=== PATIENT | male | born 1975 | race Caucasian/White ===

== ENCOUNTER 2023-08-07 16:31 | Emergency (ER) | payer MEDICAID, SELFPAY ==
[2023-08-07 16:34] VITALS: BP 132/98; PULSE 123; RESP 14; O2SAT 98
--- NOTE | 2023-08-07 17:08 | W.ED.GENAD ---
Discharge Plan Discharge Details Chief Complaint: AMS/LOC Primary Care Provider: None,None ED Provider: Orion Deleon Home Meds and New Rx's Prescriptions: No Action No Known Home Meds HPI General Date/Time Provider Initiated Documentation: 08/07/23 16:53. HPI Narrative: 47-year-old male brought in by partner for evaluation of change in mental status over the past couple of weeks, went on a weekend metz 07/23 to 07/25; has had strange fixations and obsessional thoughts centered around magnets, also has had some paranoid thoughts, it is gone to the point where patient felt uncomfortable having his rifle in the home and asked the police to confiscated which they did, patient has no thoughts of harming anyone else however he does have some thoughts of self-harm. Denies tata hallucinations. Denies history of psychiatric illness. Related Data Home Medications Medication Instructions Recorded Confirmed Unknown [No Known Home Meds] 08/07/23 08/07/23 Allergies Allergy/AdvReac Type Severity Reaction Status Date / Time No Known Allergies Allergy Verified 08/07/23 16:40 General Stated Complaint: AMS/LOC MIGUEL: 3 Review of Systems Narrative: Review of Systems Constitutional: negative Eyes: negative ENT: negative Cardiovascular: negative Respiratory: negative Gastrointestinal: negative : negative Musculoskeletal: negative Skin: negative Neurologic: negative Psych: Obsessional thoughts, paranoia Exam Narrative Exam Narrative: Physical Examination General: alert, awake, cooperative, resting comfortably, no acute distress HEENT: normocephalic, atraumatic; PERRL, EOM intact, conjunctiva normal; no nasal discharge; moist mucous membranes, oral and pharyngeal mucosa normal, tolerating secretions Neck: supple, trachea midline; full ROM Chest: normal to inspection Respiratory: normal respiratory effort, speaking in full sentences, clear to auscultation, no wheezing, rales or rhonchi Cardiac: regular rate, regular rhythm, S1S2 intact, no murmurs rubs or gallops GI: abdomen soft, non-tender, non-distended; no palpable mass or hepatosplenomegaly Skin: no lesions, rashes or trauma appreciated; consider slight jaundice Neuro: AAOx3, normal speech, moving all extremities Extremities: No trauma no edema Psych: Calm cooperative interactive appropriate, appears slightly anxious Course Vital Signs Vital signs: Vital Signs Pulse 123 H 08/07/23 16:34 Respiratory Rate 14 08/07/23 16:34 Blood Pressure 132/98 H 08/07/23 16:34 Pulse Oximetry 98 08/07/23 16:34 Pulse 123 H 08/07/23 16:34 Respiratory Rate 14 08/07/23 16:34 Blood Pressure 132/98 H 08/07/23 16:34 Pulse Oximetry 98 08/07/23 16:34 Oxygen Delivery Method Room Air 08/07/23 16:34 Oxygen Flow Rate 0 08/07/23 16:34 Pain Level 0 08/07/23 16:34 Medical Decision Making 47-year-old male brought in by partner for evaluation of increasing obsessional thoughts and paranoid thoughts over the last several weeks, recent alcohol metz after some time of being sober, patient noted to be tachycardic on arrival, possible slight jaundice appearance to skin, otherwise nontoxic interactive neurologically intact calm and cooperative. No past psychiatric history per patient and partner. Patient called to have a hunting rifle removed from the home today as he felt uncomfortable with it. No thoughts of harm to others however does have some thoughts of self-harm. Concern for possible acute hepatitis must consider alcohol related versus infectious versus Anthony's disease versus hemochromatosis versus primary psych versus tickborne illness versus electrolyte derangement versus intracranial lesion. Will evaluate with extensive medical workup given new onset progressive psychiatric symptoms. CT head pathologic labs iron panel copper level tick panel screening chest x-ray close reassessment of symptoms if negative medical workup will then pursue further psychiatric assessment 23: 17 resting actively no acute distress. Evaluated by [facility] human services. Here voluntarily for placement Quality:[facility] Health Related Social Needs: No Data to Display [facility] Social History Smoking risk assessment performed?: No PAWSS Have you Been Recently Intoxicated or Drunk Within the Last 30 days?: Yes Have you Ever Experienced Previous Episodes of Alcohol Withdrawal?: Yes Have you ever Experienced Withdrawal Seizures?: No Have you ever Experienced Delirium Tremens(DT)s?: Yes Have you ever undergone Alcohol Rehabilitation Treatment (i.e, inpt ot outpatient treatment programs)?: Yes Have you ever Experienced Blackouts?: No Have you ever Combined Alcohol with other Downers within the last 90 days?: No Have you ever Combined Alcohol with any other Substance of Abuse during the last 90 days?: No Positive Blood Alcohol level on Presentation? [PCS.BAL]: No Evidence of Increased Autonomic Activity (i.e. HR>120, tremor, sweating, agitation, nausea)?: No Result: 4
[2023-08-07 17:18] LABS: Bilirubin Negative (Negative); Blood Negative (Negative); Clarity Clear (Clear); Glucose Negative (Negative); Ketones Trace mg/dL (Negative); Leukocyte Esterase Negative (Negative); Nitrite Negative (Negative); Specific Gravity >= 1.030 (1.005-1.025); Urobilinogen 0.2 mg/dL (Up to 0.2); pH 5.5 (5-8)
[2023-08-07] MEDS: Normal Saline 500 ML 1000 ML IV (17:22)
[2023-08-07 17:23] VITALS: TEMP 36.7
[2023-08-07 17:25] LABS: Abs Immature Grans 0.02 10^3/uL (0.0-0.06); Absolute Basophil Count 0.04 10^3/uL (0.0-0.2); Absolute Lymphocyte Count 2.03 10^3/uL (1.2-3.4); Absolute Monocyte Count 0.62 10^3/uL (0.1-0.8); Absolute Neutrophil Count 5.11 10^3/uL (1.2-6.7); Basophils % 0.5 %; HCT 44.2 % (40.0-50.0); Immature Grans % 0.3 %; MCH 30.3 pg (27.0-33.0); MCHC 33.9 % (32.0-36.0); MCV 89 fL (80-95); MPV 9.3 fL (8.0-11.0); Monocytes % 7.9 %; Neutrophils % 65.3 %; Platelet Count 327 10^3/uL (130-400); RBC 4.95 10^6/uL (4.36-5.78); RDW 13.5 % (11.8-14.1); RDW-SD 44.3 fL; WBC 7.82 10^3/uL (4.4-10.8)
[2023-08-07 17:26] LABS: *AMPHETAMINES SCREEN URINE Negative (Negative); *BARBITURATES SCREEN URINE Negative (Negative); *BENZODIAZEPINES SCREEN URINE Positive (Negative); Cannabinoids THC Positive (Negative); Cocaine Screen,Urine Negative (Negative); METHADONE URINE SCREEN Negative (Negative); OPIATES URINE SCREEN Negative (Negative)
[2023-08-07 17:27] LABS: Tricyclic Antidepressants Negative (Negative)
[2023-08-07 17:39] LABS: PTT Activated 27.2 sec (23.6-32.8); Prothrombin Time 10.4 sec (9.1-11.1)
[2023-08-07 17:50] LABS: Iron 115 ug/dL (65-175); Total Iron Binding Capacity 312 ug/dL (250-450); Transferrin Sat 37 % (20-55)
[2023-08-07 17:54] LABS: ALT 81 U/L (16-63); AST 23 U/L (15-37); Albumin 4.2 g/dL (3.4-5.0); Alkaline Phosphatase 88 U/L (46-116); Anion Gap 11.8 mmol/L (3-11); BUN 17 mg/dL (7-18); Bilirubin, Total 0.5 mg/dL (0.2-1.0); CO2 24.2 mmol/L (21.0-32.0); Calcium 9.2 mg/dL (8.5-10.1); Chloride 105 mmol/L (98-107); Creatine Kinase 57 U/L (39-308); Estimated GFR 94.59 (mL/min/1.73m2); Glucose 104 mg/dL (74-106); Lipase 28 U/L (16-77); Magnesium 1.7 mg/dL (1.8-2.4); Potassium 3.7 mmol/L (3.5-5.1); Sodium 141 mmol/L (136-145); Total Protein 7.8 g/dL (6.4-8.2)
[2023-08-07 18:04] LABS: ETHANOL BLOOD < 3.0 mg/dL (<10)
[2023-08-07 18:05] VITALS: BP 125/97; PULSE 84; RESP 18; O2SAT 99
[2023-08-07 18:17] LABS: Ammonia < 10 umol/L (11-32)
--- NOTE | 2023-08-07 18:24 | DI.CT_ITS ---
Exam(s) CT HEAD WO EXAM: CT HEAD WO CLINICAL HISTORY: ams. TECHNIQUE: Imaging Protocol: Axial computed tomography images with coronal and sagittal reformatted images were created and reviewed COMPARISON: No exams were available for comparison FINDINGS: Ventricles and Extra axial spaces: Normal in size and morphology for the patient's age. Hemorrhage: None. Cerebral parenchyma: Normal. Midline shift: None. Brainstem/Cerebellum: Normal. Calvarium: Normal. Visualized Paranasal sinuses/Mastoids: Clear. Soft Tissues: Unremarkable. IMPRESSION: No acute intracranial process. RADIATION DOSE DELIVERED: Total DLP DATA REPOSITORY: All CT scans at this facility are submitted to the National Radiology Data Registry (NRDR) Dose Index Registry (DIR) with the [employer] (ACR). RADIATION OPTIMIZATION: All CT scans at this facility use at least one of these dose optimization te chniques: automated exposure control; mA and/or kV adjustment per patient size (includes targeted exa ms where dose is matched to clinical indication); or iterative reconstruction.
--- NOTE | 2023-08-07 18:25 | DI.RAD_ITS ---
Exam(s) XR CHEST 2V PA LATERAL EXAM: XR CHEST 2V PA LATERAL CLINICAL HISTORY: ams TECHNIQUE: 2D digital imaging was performed of the chest. Two images were obtained. PA and lateral views were obtained. COMPARISON: No exams were available for comparison FINDINGS: MEDIASTINUM: Normal. HEART: Normal. PULMONARY VASCULATURE: Normal. LUNGS: Clear. PLEURAL SPACE: No pleural effusion or pneumothorax. BONE:Within normal limits for the patient's age. OTHER FINDINGS:Normal. IMPRESSION: No acute pulmonary findings. DATA REPOSITORY: RADIATION DOSE DELIVERED:
[2023-08-07 18:35] LABS: Acetaminophen < 2 ug/mL (10-30); Salicylate 3.4 mg/dL (<2.8)
--- NOTE | 2023-08-07 21:19 | NUR.NOTE ---
[facility] Sneha is here to conduct assessment.
[2023-08-07] MEDS: Nicotine 2 MG GUM CH (22:48)
--- NOTE | 2023-08-08 00:14 | W.EDPROG ---
Date of service: 08/07/23 Time of Service: 23:00 Medical Decision Making This patient was signed out to me. Please see previous notes for H&P and initial eval. In brief, 47yo M with new onset psychosis, medically cleared, voluntary, pending placement. Overnight no acute events. Did not wake for assessment. Signed out to oncoming physician, plan remains as above. Quality:[facility] Health Related Social Needs: No Data to Display Sign Out Sign Out Data: Sign Out Comment: progressive obsessional thoughts, paranoia, delusions over the past month, weapons removed form home today, SI; voluntary, evaluated by [facility], awaiting placement Last updated by Orion Deleon MD at 08/07/23 23:18 Discharge Plan Discharge Details Chief Complaint: AMS/LOC Primary Care Provider: None,None ED Provider: Mady Reynolds Home Meds and New Rx's Prescriptions: No Action No Known Home Meds
--- NOTE | 2023-08-08 00:40 | PDOC.MHCN_ITS ---
Date of service: 08/07/23 Time of Service: 21:24 PHQ-9 Over the last 2 weeks, how often have you been bothered by any of the following problems? 1. Little interest or pleasure in doing things: nearly every day 2. Feeling down, depressed, or hopeless: several days 3. Trouble falling or staying asleep, or sleeping too much: not at all 4. Feeling tired or having little energy: several days 5. Poor appetite or overeating: not at all 6. Feeling bad about yourself - or that you are a failure or have let yourself and your family down: nearly every day 7. Trouble concentrating on things, such as reading the newspaper or watching television: several days 8. Moving or speaking so slowly that other people could have noticed? - Or the opposite - being so fidgety or restless that you have been moving around a lot more than usual: more than half the days 9. Thoughts that you would be better off or of hurting yourself in some way: not at all Total score: 11 If you checked off any problems, how difficult have these problems made it for you to do your work, take care of things at home, or get along with other people?: very difficult Source: Developed by Drs. Hola Roa, Alana Oviedo, Edwardo Figueredo and colleagues, with an educational luz from [employer]. Suicide Severity Rate CSSRS Have you wished you were or wished you could go to sleep and not wake up?: No Have you actually had any thoughts of killing yourself?: No CSSRS3 Have you ever done anything, started to do anything or prepared to do anything to end your life?: No Screening Score Total Score: 0 Screening: Negative Mental Health Emergency Note Release [facility] release signed:: Yes Reason for Visit In the last 2 weeks has the pt presented for ES prior to today?: No Non Suicidal Self Injury Current: No History: No Safety Risk/Harm to Self or Others Current Ideation to Harm Self or Others: No Risk: Does risk to harm exist?: No Asssessment/Mental Status Appearance: Unremarkable Attitude: Cooperative Behavior: Unremarkable Speech: Normal Affect: Normal Mood: Sad and Anxious Thought process: Unremarkable Hallucinations: yes, Visual Delusions: yes, Persectory/Paranoid and Bizarre Attention: Unremarkable Perception: Not impaired Orientation: Fully orientated Memory: Intact Insight: Good Judgement: Good Neurovegetative Symptoms Sleep: No change (Client reported sleeping during the day ) Appetitie: Disordered ( eating at night more often ) Interests: Decrease Energy: Decrease Libido: Not applicable Impression Client reported no SI, Hi, or NSSI. Client reported that due to his mental status he went on a drinking binge, which ended a three-year sobriety. CLient reported that he does not feel like himself, and his girlfriend has also informed that he has not been acting like himself. Client appeared to be suffering from some hallucinations explaining to this news writer then he sees the [employer] signs. Client also reported that he had police come to his home to take possession of his gun due to not feeling safe in the home with it there. Client was concerned that a gentleman that swapped his license for the clients would come to the clients home. Client reported a difficulty completing his daily tasks in addition to not working in his garden which he typically enjoys. Client reported an increase in sleeping during the day and eating large quantities of food during the night. Plan/Disposition Recommended Disposition: Hospitalization No. Plan: Client will remain at [facility] Zone B till inpatient placement is found. Client will need daily assessments till placed.? Reports/communication Outcome discussed with: ED/Personnel
--- NOTE | 2023-08-08 08:04 | W.EDPROG ---
Date of service: 08/08/23 Time of Service: 08:04 Medical Decision Making I received signout on this 47-year-old male in the emergency department voluntarily. He is medically cleared. No active behavioral issues last shift. Will update documentation as clinically warranted and signed patient out to the oncoming evening provider. 2:20 PM No active behavioral issues on my shift. I spoke with Keith from [facility]. Patient is being evaluated for voluntary placement. Will sign patient out to Dr. Park Quality:[facility] Health Related Social Needs: No Data to Display Sign Out Sign Out Data: Sign Out Comment: progressive obsessional thoughts, paranoia, delusions over the past month, weapons removed form home today, SI; voluntary, evaluated by [facility], awaiting placement Last updated by Orion Deleon MD at 08/07/23 23:18 Sign Out Comment: 47M new psychosis, medically cleared, voluntary pending placement Last updated by Mady Reynolds MD at 08/08/23 06:04 Discharge Plan Discharge Details Chief Complaint: AMS/LOC Primary Care Provider: None,None ED Provider: Paulo Kelly Home Meds and New Rx's Prescriptions: No Action No Known Home Meds
[2023-08-08 08:40] VITALS: BP 104/76; PULSE 92; RESP 18; TEMP 36.3; O2SAT 99
[2023-08-08] MEDS: Nicotine 14 MG/24 HR PATCH TD ×2 (08:54→15:44)
--- NOTE | 2023-08-08 13:04 | CMSP_ITS ---
Date of service: 08/08/23 Time of Service: 13:04 Care Management Safety Plan Status Status: Voluntary Reason for Wait Reason for Wait: Inpatient Admission (Awaiting inpatient psych treatment at an accepting facility.) Safety Plan Safety Plan: VOLUNTARY FOR INPATIENT PSYCHIATRIC STABILIZATION.? Patient is appropriate in all interactions since arriving at [facility]; Pt has demonstrated appropriate coping and communication skills, has articulated his needs and concerns and is fully engaged during staff interactions. Safety plan has been established with patient, and care team, to adhere to patient goals, identify restrictions based on behavioral status, address nutrition, and determine allowed personal belongings, tools for hygiene and personal care. Determine level of activity including ambulation, level of supervision, visitors, and determine privileges based on behaviors and level of engagement by pt. Per provider documentation: Hai is a 47 year old male that presented to the ER yesterday with progressive obsessional thoughts, paranoia and delusions X 1 month. Prior to being seen in the ER he had the police go out to his home to remove weapons. At this time, Hai is awaiting voluntary inpatient psych treatment at an accepting facility. [facility] and [facility] have declined, per [facility] Clinician. Hai does not have health insurance. sent a [facility] to see if patient meets eligibility for Medicaid. Reviewed with: ER provider/Dr. Garcia, [facility] lot boss/ Janel and [facility] B nursing Kolby, RN supervisor coin machine Marielena and LISA RN SAFETY PLAN: 1. Will remain on suicide precautions, in paper clothes 2. Will remain in Zone B under direct supervision of one-on-one staff at all times provided by [employer]; GIANLUCA, MORTGAGE LOAN ORIGINATOR labor and delivery nurse. 3. May have paper cups, plates, finger foods as well as a cardboard spoon with which to eat meals. 4. Follow [facility] Management of the Admitted Behavioral Health Patient policy. 5. Shower available in Zone B without restriction. 6. Personal belongings-soft items permitted at RN discretion. 7. Visitors- at RN discretion. 8. Activities: soft cart items approved per RN discretion. 9.? Bathroom available in Zone B without restriction. 10. Phone: incoming/outgoing calls limited to [facility] cordless phone at RN discretion. Due to VOLUNTARY status, if patient wishes to leave [facility], staff will contact [facility] Crisis Screener ([phone]) and Nurse Substance Abuse ([phone]) as soon as possible. In the event of elopement, notify [facility] Police ([phone]). Patient is currently voluntarily at [facility] and seeking inpatient admission when a bed becomes available. [facility] Frontline Security Delivery Specialist will continue seeking placement. Please contact the Nurse Substance Abuse ([phone]) and [facility] Security Delivery Specialist ([phone]) for any needed changes in the Safety Plan. Safety plan has been provided to interdepartmental care team.
[2023-08-08] MEDS: Nicotine 2 MG GUM CH ×2 (15:44→20:13)
--- NOTE | 2023-08-08 15:51 | MHPN_ITS ---
Date of service: 08/08/23 Time of Service: 11:30 PHQ-9 Over the last 2 weeks, how often have you been bothered by any of the following problems? 1. Little interest or pleasure in doing things: more than half the days 2. Feeling down, depressed, or hopeless: not at all 3. Trouble falling or staying asleep, or sleeping too much: several days 4. Feeling tired or having little energy: several days 5. Poor appetite or overeating: several days 6. Feeling bad about yourself - or that you are a failure or have let yourself and your family down: not at all 7. Trouble concentrating on things, such as reading the newspaper or watching television: several days 8. Moving or speaking so slowly that other people could have noticed? - Or the opposite - being so fidgety or restless that you have been moving around a lot more than usual: not at all 9. Thoughts that you would be better off or of hurting yourself in some way: not at all Total score: 6 Source: Developed by Drs. Hola Roa, Alana Oviedo, Edwardo Figueredo and colleagues, with an educational luz from [employer] Suicide Severity Rate CSSRS Have you wished you were or wished you could go to sleep and not wake up?: No Have you actually had any thoughts of killing yourself?: No CSSRS2 Have you been thinking about how you might do this?: No Have you had these thoughts and had some intention of acting on them?: No Have you started to work out or worked out the details of how to kill yourself? Do you intend to carry out this plan?: No CSSRS3 Have you ever done anything, started to do anything or prepared to do anything to end your life?: No CSSRS4 Was this within the past three months?: No Screening Score Total Score: 0 Screening: Negative Mental Health Emergency Note Release [facility] release signed:: Yes Reason for Visit Recurring thoughts of electrical equations and trying to figure out astrological symbols daily In the last 2 weeks has the pt presented for ES prior to today?: No Client Information Client is: Adult Outpatient Well Housed: Yes Non Suicidal Self Injury Current: No History: No Safety Risk/Harm to Self or Others Current Ideation to Harm Self or Others: No Risk: Does risk to harm exist?: yes. Risk: Low Risk Duty to warn indicated: No Asssessment/Mental Status Appearance: Other Attitude: Cooperative Behavior: Unremarkable Speech: Normal Affect: Cogruent with mood Thought process: Flight of ideas and Goal directed Hallucinations: No Delusions: yes, Persectory/Paranoid Attention: Unremarkable Perception: Not impaired Orientation: Fully orientated Memory: Intact Insight: Poor Judgement: Poor Neurovegetative Symptoms Sleep: Decrease Appetitie: Disordered Interests: Decrease Energy: Decrease Libido: Not applicable Substance Use: Other Drug Issues: Dependence Do you use nicotine?: Yes Have you used substances in the last 7 days?: yes, daily Additional Issues: Assaultive/Threatening Behavior: No Medical Concerns: Yes Client engaged in active self harm w/weapon: No Threatening to run away: No Child reported abuse/neglect: No Voluntarily presenting for services: Yes Domestic violence is a concern: No Extreme Psychosis or extreme behavior is present: No Impression Client appears to be suffering from delusional thought patterns and realizes he needs help to stop these recurring thoughts Resources Reosurces reviewed and given:: 988 and [facility] Plan/Disposition Recommended Disposition: Hospitalization facilities contacted. Plan: Client will stay hospitalized until an inpatient treatment bed is available. If patient decides to leave a safety Plan will be completed and if necessary EE'd. Facilities contacted if Applicable [facility] Not accepted, Other [facility] Not accepted, No bed available [facility] Not accepted, Other, [facility] Not accepted, Medical reasons Reports/communication Outcome discussed with: ED/Personnel
--- NOTE | 2023-08-08 23:04 | W.EDPROG ---
Date of service: 08/08/23 Time of Service: 23:05 Medical Decision Making Patient resting actively no acute distress. Awaiting placement Quality:[facility] Health Related Social Needs: No Data to Display Sign Out Sign Out Data: Sign Out Comment: progressive obsessional thoughts, paranoia, delusions over the past month, weapons removed form home today, SI; voluntary, evaluated by [facility], awaiting placement Last updated by Orion Deleon MD at 08/07/23 23:18 Sign Out Comment: 47M new psychosis, medically cleared, voluntary pending placement Last updated by Mady Reynolds MD at 08/08/23 06:04 Sign Out Comment: 47-year-old male new psychosis medically cleared pending voluntary placement. No active behavioral issues last shift. Last updated by Paulo Kelly MD at 08/08/23 14:22 Discharge Plan Discharge Details Chief Complaint: AMS/LOC Primary Care Provider: None,None ED Provider: Orion Deleon Home Meds and New Rx's Prescriptions: No Action No Known Home Meds
--- NOTE | 2023-08-09 07:05 | W.EDPROG ---
Date of service: 08/09/23 Time of Service: 07:05 Medical Decision Making I received the patient in signout again today. No active behavioral issues/shift. Will update documentation as clinically warranted and signed patient out to the oncoming evening provider. 4:40 PM No active behavioral issues last shift. I ordered a tele psychiatry consult given paranoia and anxiousness. This has not yet been completed. I signed patient out to Dr. Park Quality:[facility] Health Related Social Needs: No Data to Display Sign Out Sign Out Data: Sign Out Comment: progressive obsessional thoughts, paranoia, delusions over the past month, weapons removed form home today, SI; voluntary, evaluated by [facility], awaiting placement Last updated by Orion Deleon MD at 08/07/23 23:18 Sign Out Comment: 47M new psychosis, medically cleared, voluntary pending placement Last updated by Mady Reynolds MD at 08/08/23 06:04 Sign Out Comment: 47-year-old male new psychosis medically cleared pending voluntary placement. No active behavioral issues last shift. Last updated by Paulo Kelly MD at 08/08/23 14:22 Sign Out Comment: voluntary, awaiting placement Last updated by Orion Deleon MD at 08/08/23 23:05 Sign Out Comment: Patient here with new onset of psychosis. He has been cooperative with no issues overnight. He is awaiting voluntary placement for inpatient psych. Last updated by Hola Malhotra MD at 08/09/23 07:02 Discharge Plan Discharge Details Chief Complaint: AMS/LOC Primary Care Provider: None,None ED Provider: Paulo Kelly Home Meds and New Rx's Prescriptions: No Action No Known Home Meds
--- NOTE | 2023-08-09 07:51 | CMSP_ITS ---
Date of service: 08/09/23 Time of Service: 07:51 Care Management Safety Plan Status Status: Voluntary Reason for Wait Reason for Wait: Inpatient Admission (Awaiting inpatient psych treatment, at this time) Safety Plan Safety Plan: VOLUNTARY FOR INPATIENT PSYCHIATRIC STABILIZATION.? Patient is appropriate in all interactions since arriving at [facility]; Pt has demonstrated appropriate coping and communication skills, has articulated his needs and concerns and is fully engaged during staff interactions. Safety plan has been established with patient, and care team, to adhere to patient goals, identify restrictions based on behavioral status, address nutrition, and determine allowed personal belongings, tools for hygiene and personal care. Determine level of activity including ambulation, level of supervision, visitors, and determine privileges based on behaviors and level of engagement by pt. Hai is a 47 year old male that presented to the ER with progressive obsessional thoughts, paranoia and delusions X 1 month. Prior to being seen in the ER he had the police go out to his home to remove weapons. He is being provided with a calm environment in ZoneB and has been appropriate in interaction. At this time, Hai is awaiting voluntary inpatient psych treatment at an accepting facility. [facility] have declined, per [facility] Clinician. Hai does not have health insurance. CM [facility] to see if patient meets eligibility for Medicaid. 08/09/23 Order for Telepsychiatry has been placed by . SAFETY PLAN: 1. Will remain on suicide precautions, in paper clothes 2. Will remain in Zone B under direct supervision of one-on-one staff at all times provided by [employer]; GIANLUCA, PURLER radio interference supervisor. 3. May have paper cups, plates, finger foods as well as a cardboard spoon with which to eat meals. 4. Follow [facility] Management of the Admitted Behavioral Health Patient policy. 5. Shower available in Zone B without restriction. 6. Personal belongings-soft items permitted at RN discretion. 7. Visitors- at RN discretion. 8. Activities: soft cart items approved per RN discretion. 9.? Bathroom available in Zone B without restriction. 10. Phone: incoming/outgoing calls limited to [facility] cordless phone at RN discretion. Due to VOLUNTARY status, if patient wishes to leave [facility], staff will contact [facility] Crisis Screener ([phone]) and Drone Pilot ([phone]) as soon as possible. In the event of elopement, notify [facility] Police ([phone]). Patient is currently voluntarily at [facility] and seeking inpatient admission when a bed becomes available. [facility] Frontline Tile Mechanic Helper will continue seeking placement. Please contact the Drone Pilot ([phone]) and [facility] Tile Mechanic Helper ([phone]) for any needed changes in the Safety Plan. Safety plan has been provided to interdepartmental care team.
[2023-08-09] MEDS: Nicotine 2 MG GUM CH (09:52)
--- NOTE | 2023-08-09 19:53 | W.EDPROG ---
Date of service: 08/09/23 Time of Service: 19:53 Medical Decision Making A telepsych consultation was requested earlier today however no callback was received during the scheduled time. Patient has been resting comfortably since arrival. Patient no longer wishes to wait for telemetry psych consultation as spoke multiple times with [facility] human services providers. Patient denies SI or HI. No evidence of active delusions or hallucinations on multiple repeat interactions. No weapons in the home as patient is 4 feet of them to the police department. I have requested the [facility] services reevaluate patient which they have done and determined that patient is in fact safe for home safety plan and close follow-up. Patient given strict return precautions. I spoke directly with Kadie the patient's partner who feels comfortable with him coming home, she endorses that there are no weapons in the home and that there is a good community that can provide further assistance if needed at home. Baby is coming to pick him up currently. Quality:[facility] Health Related Social Needs: No Data to Display Sign Out Sign Out Data: Sign Out Comment: progressive obsessional thoughts, paranoia, delusions over the past month, weapons removed form home today, SI; voluntary, evaluated by [facility], awaiting placement Last updated by Orion Deleon MD at 08/07/23 23:18 Sign Out Comment: 47M new psychosis, medically cleared, voluntary pending placement Last updated by Mady Reynolds MD at 08/08/23 06:04 Sign Out Comment: 47-year-old male new psychosis medically cleared pending voluntary placement. No active behavioral issues last shift. Last updated by Paulo Kelly MD at 08/08/23 14:22 Sign Out Comment: voluntary, awaiting placement Last updated by Orion Deleon MD at 08/08/23 23:05 Sign Out Comment: Patient here with new onset of psychosis. He has been cooperative with no issues overnight. He is awaiting voluntary placement for inpatient psych. Last updated by Hola Malhotra MD at 08/09/23 07:02 Sign Out Comment: New onset psychosis. Cooperative last shift. Awaiting voluntary placement. Telepsychiatry consult pending. Last updated by Paulo Kelly MD at 08/09/23 16:40 Discharge Plan Disposition Patient Disposition: Home Condition: Improving Discharge Details Chief Complaint: AMS/LOC Clinical Impression: Encounter for psychiatric assessment Primary Care Provider: None,None ED Provider: Orion Deleon Home Meds and New Rx's Prescriptions: No Action No Known Home Meds Discharge Instructions Additional Instructions: Please follow-up with [facility] human services counselors as arranged, if you have any worsening symptoms please return to the emergency department for further assistance
--- NOTE | 2023-08-09 20:13 | W.EDPROG ---
Date of service: 08/09/23 Time of Service: 20:13 Medical Decision Making Update from prior note: Patient recently completed telepsych interview. Was able to speak with Dr. Jones of psychiatry who agrees that patient is safe for discharge home with close follow-up. Quality:[facility] Health Related Social Needs: No Data to Display Sign Out Sign Out Data: Sign Out Comment: progressive obsessional thoughts, paranoia, delusions over the past month, weapons removed form home today, SI; voluntary, evaluated by [facility], awaiting placement Last updated by Orion Deleon MD at 08/07/23 23:18 Sign Out Comment: 47M new psychosis, medically cleared, voluntary pending placement Last updated by Mady Reynolds MD at 08/08/23 06:04 Sign Out Comment: 47-year-old male new psychosis medically cleared pending voluntary placement. No active behavioral issues last shift. Last updated by Paulo Kelly MD at 08/08/23 14:22 Sign Out Comment: voluntary, awaiting placement Last updated by Orion Deleon MD at 08/08/23 23:05 Sign Out Comment: Patient here with new onset of psychosis. He has been cooperative with no issues overnight. He is awaiting voluntary placement for inpatient psych. Last updated by Hola Malhotra MD at 08/09/23 07:02 Sign Out Comment: New onset psychosis. Cooperative last shift. Awaiting voluntary placement. Telepsychiatry consult pending. Last updated by Paulo Kelly MD at 08/09/23 16:40 Discharge Plan Disposition Patient Disposition: Home Condition: Improving Discharge Details Clinical Impression: Encounter for psychiatric assessment Primary Care Provider: None,None ED Provider: Orion Deleon Home Meds and New Rx's Prescriptions: No Action No Known Home Meds Discharge Instructions Additional Instructions: Please follow-up with [facility] human services counselors as arranged, if you have any worsening symptoms please return to the emergency department for further assistance
--- NOTE | 2023-08-09 20:24 | W.TELEPSYCH ---
Date of service: 08/09/23 Time of Service: 19:24 Summary Note Name: Hai Salmon?: 1975 Date?and?Time: 08/09/2023 7:14:23 PM Location of the patient: [facility] ED?Location of the doctor: [place] Length of consult: 60 minutes This evaluation was conducted via video telepsychiatry with the assistance of onsite staff Reason for consult: Evaluation and Disposition Requested by: Emergency Department History of Present Illness: 47-year-old male that presented do to concerns with mental health related to delusions and paranoia. The patient reports that he seeing symbols and making connections and then leading to an argument with girlfriend. He then asked another person and they were not seeing the same connection that he was seeing himself. He reports that he was just questioning if there was a similarities between zodiac symbols. The patient reports that he went to [facility] and went on a metz for 2 days- . He had been sober for many years. After that he drove back to [place] on Thursday. The patient that went on a vacation with girlfriend to [place]. He then discovered another ID and believed it occurred when he was in [facility] and asking someone to get him cigarettes. He then spoke to the Police and presented the story. He overheard the police made a comment that he (the patient) was a bad [place]. When they returned to [place] he was still thinking about the conversation. He then decided to hand-in his lenore. This was purchased because they had a bear that wanders on their property. The patient is noted to identify some issues with feeling concerned about girlfriend's actions. The patient denies psychiatric history aside from alcohol use. The patient does have past history of being homeless during the pandemic. The patient reports that he has a daughter with epilepsy and did not tell his partner about the money he spent and loss of his job. The patient does report some periods of feeling sad. The patient is unsure what drove the presentation and questioning things. He denies issues with sleep and appetite (reduced over the last month). The patient denies SI, HI, or AVH. Collateral Contacted: No?Reason for not contacting the collateral:Other?Other:?Was already contacted by primary provider. Kadie [phone] Sleep issues?: No Psychiatric History/Treatment History:? Past diagnoses: Alcohol Use Hospitalizations: No Current Treatment:No Suicide Assessment: PSS-3: 1) Over the past 2 weeks have you felt down, depressed or hopeless??No? 2) Over the past 2 weeks have you had thoughts of killing yourself??No 3) Have you ever in your life attempted to kill yourself??No Within the past 6 months??? [facility]-based Safety Assessment: Risk Factors Stressors: Focusing on symbols and similarities Attempts/Self-injury: No Impulsivity:No Drug/Alcohol History:Yes?Description:?Alcohol Use History and Cannabis Use History Trauma History:Unknown-NA Access to firearms:Unknown-NA HI/Violence/Property destruction:No Legal: Unknown-NA Family Psych History:Unknown-NA Family History of suicide:Unknown-NA Protective Factors:? Can handle stress well??Unknown-NA ? Yazidism??Unknown-NA ? External: Social supports/ Therapeutic relationships: Yes?Description:?Family Relationship history: Dating Living situation: Resides with girlfriend Employment: No Education: High Schools Responsibility to family/children/work: Yes?Description: Future orientation:Yes?Description:?Create something Health History: Medical History: None reported Medications & Freq: None reported Allergies: NKDA Mental Status Exam: Appearance and Attire:?Normal, Good eye contact Psychomotor agitation:?No abnormality Attitude and behavior:?Cooperative Speech:?No abnormality, Mood:?Euthymic Affect:?Full range of affect Thought process:?Circumstantial Thought content:?No suicidal ideation, No homicidal ideation Perception:?No auditory hallucinations, No visual hallucinations Intel:?Average Abstract:?Appropriate Language:?No abnormality Orientation:?Grossly oriented Sense:?Normal Knowledge:?Appropriate for education and socioeconomic status Memory:?Intact Insight:?Lack of awareness of problems Judgement:?Mild impairment Gait:?No abnormality Impression/Risk Assessment: Current Suicide Risk Elevated??Yes ? Current Violence Risk Elevated??No ? Issues with ability to care for self??No ? Summary: The patient self-presented due to some questions he had about things and appeared to have some possible delusional beliefs. He does have a cannabis use history, but he stopped about a month ago (around the same time as his symptoms presented). In addition he does have a history of alcohol use and did relapse memorial day weekend. The patient appears to have some thoughts that appear to be odd as he is trying to connect different symbols from different aspects. It is possible that some of the thoughts could be secondary to his cannabis use history. Diagnosis: F43.29 Adjustment disorder with other symptoms CPT Codes: Treatment Plan:? General: Dr. Deleon was able to connect with partner Kadie who also did not endorse any concerns for the patient to return home. Level of Care: Discharge to [facility] Psychiatric Clearance: Yes? Observation level ? 1:1 needed?: No Pharmacological: Patient psychotic?No Therapy: Follow up needed while in the hospital?: No Discussed plan with onsite seam steamer: Yes Who Dr. Deleon Other:
--- NOTE | 2023-08-10 11:01 | PDOC.MHPN2 ---
Date of service: 08/09/23 Time of Service: 11:50 Mental Health Emergency Note Release [facility] release signed:: Yes Reason for Visit Client presented into [facility] ED on 08/07/23 due to some confusion in addition to possible hallucinations and delusions. Client was screened and reassessed in person by this song writer. In the last 2 weeks has the pt presented for ES prior to today?: No Client Information Client is: Adult Outpatient Well Housed: Yes Impression The client is a 47 y/o male that resides in [place], [place] with his girlfriend. The client is currently unemployed, however is looking for employment. The client identifies as male and uses he/him pronouns. They participated in all screening tools including the CSSRS, CAMS was not utilized as this song writer is not CAMS trained. The client presents sitting up in hospital bed dressed in paper hospital attire when this song writer arrives in person. The client appears to become a little agitated when this song writer began to answer questions stating: I have already answered these questions the last couple of days. The client reports that he is not continuing to try to make the connection between the astrological and electrical signs as he reports that he realized he was becoming fixated on these thoughts. The client denies suicidal and homicidal ideations as well as intent and plan. Plan/Disposition Recommended Disposition: Hospitalization No. Plan: The client will remain at [facility] ED Pending placement at an inpatient facility or a safety plan can be put in place. [place] [facility] [place] [facility], and [facility]. The Client will be reassessed daily until placement can be secured. Per report of Dr. Kelly he will order a telepsych consult. Reports/communication Outcome discussed with: ED/Personnel (Verbal passover given to ED provider Dr. Kelly)
[2023-08-10 11:04] LABS: Lyme Ab w Rflx to Lyme Confirm Negative (Negative)
[2023-08-10 11:19] LABS: Hepatitis A Antibody IgM Negative (Negative); Hepatitis B Core Antibody Negative (Negative); Hepatitis B surface Ag Negative (Negative); Hepatitis C Ab w Rflx HCV PCR Negative (Negative)
[2023-08-11 12:32] LABS: Copper, Serum 114 mcg/dL (73-129)
[2023-08-11 13:34] LABS: Anaplasma phagocytophilum Negative (Negative); B. miyamotoi PCR Negative (Negative); Babesia divergens/MO-1 Negative (Negative); Babesia duncani Negative (Negative); Babesia microti Negative (Negative); Ehrlichia chaffeensis Negative (Negative); Ehrlichia ewingii/canis Negative (Negative); Ehrlichia muris eauclairensis Negative (Negative)
== END 2023-08-09 18:22 | disposition home or self-care (01) ==
PROVIDERS: Emergency Provider Emergency Medicine
DX: F22 Delusional disorders (principal); F43.29 Adjustment disorder with other symptoms
CPT/HCPCS: 00123; 36415; 80053; 80307; 82525; 82550; 82962; 83690; 86704; 86709; 86803; 87340; 87798; 96127; 96360; 96361; 99285; 70450; 71046; 80320; 80329; 81003; 82140; 83540; 83550; 83735; 84443; 85025; 85610; 85730; 86618; 99284

== ENCOUNTER 2024-01-04 16:48 | Emergency (ER) | payer MEDICAID, SELFPAY ==
[2024-01-04 16:52] VITALS: BP 131/71; PULSE 100; RESP 20; TEMP 37.3; O2SAT 98
--- NOTE | 2024-01-04 17:30 | DI.RAD_ITS ---
Exam(s) XR HAND RT LIMITED EXAM: XR HAND RT LIMITED CLINICAL HISTORY: cut palm on garbage, eval foreign body. TECHNIQUE: 2D digital imaging was performed of the right hand. Three images were obtained. AP, late ral and oblique views were obtained. COMPARISON: No exams were available for comparison FINDINGS: BONES: No acute fracture is present. No bony destructive lesion is seen. JOINTS: No dislocation present. SOFT TISSUE: Normal. No radiopaque foreign bodies. No soft tissue gas. IMPRESSION: No acute fracture, dislocation, foreign body or soft tissue gas. DATA REPOSITORY: RADIATION DOSE DELIVERED:
--- NOTE | 2024-01-04 17:32 | ED.GENADUL_ITS ---
Discharge Plan Disposition Patient Disposition: Home Condition: Good Discharge Details Chief Complaint: Laceration Clinical Impression: Laceration of palm Primary Care Provider: None,None ED Provider: Mady Reynolds Home Meds and New Rx's Prescriptions: No Action No Known Home Meds Discharge Instructions Instructions: Laceration Repair With Stitches ED Additional Instructions: Stitches out in 7-10 days. Seek medical attention for swelling, worsening pain, thick green or white discharge, difficulty using your hand, or if you have any other concerns. HPI General Mode of arrival: ambulatory . Date/Time Provider Initiated Documentation: 01/04/24 17:04 . Limitations to Documentation: no limitations . Information obtained by: patient . HPI Narrative: 48yo previously healthy male presenting with laceration to palm of right hand; was pushing recycling down and was cut on something unseen. Last tetanus 2 years ago. No numbness, tingling, or weakness in hand. No other injuries. Otherwise in his usual state of health. Related Data Home Medications ?Medication ?Instructions ?Recorded ?Confirmed Unknown [No Known Home Meds] 08/07/23 01/04/24 Allergies Allergy/AdvReac Type Severity Reaction Status Date / Time No Known Allergies Allergy Verified 01/04/24 16:55 General Stated Complaint: Laceration MIGUEL: 4 Review of Systems Narrative: see HPI Exam Narrative Exam Narrative: General: Alert, well appearing, well nourished, in no acute distress. Head: Normocephalic, atraumatic Neck: Trachea midline, ?Neck supple. Cardiac: ?No cyanosis. Resp: No respiratory distress. Speaking in full sentences. Abd: Non-distended Extremities: ?Right palm 2cm linear shallow laceration proximal to 2nd digit. Distal sensation, strength, and capillary refill intact. Full strength with active ROM at all digits. Neurologic: GCS 15. ? Moves all extremities freely against gravity Course Vital Signs Vital signs: Vital Signs Temperature 37.3 C 01/04/24 16:52 Pulse 100 H 01/04/24 16:52 Respiratory Rate 20 01/04/24 16:52 Blood Pressure 131/71 01/04/24 16:52 Pulse Oximetry 98 01/04/24 16:52 Temperature 37.3 C 01/04/24 16:52 Pulse 100 H 01/04/24 16:52 Respiratory Rate 20 01/04/24 16:52 Respiratory Effort Normal 01/04/24 16:54 Blood Pressure 131/71 01/04/24 16:52 Pulse Oximetry 98 01/04/24 16:52 Pain Level 0 01/04/24 16:52 Procedures Laceration Laceration 1: Site: hand Side (If applicable): right Size (cm): 2 Description: linear Depth: simple, single layer Local anesthetic: Lidocaine 2% and with Epi Amount of anesthesia used (mL): 2 Pre-repair: wound explored, irrigated extensively and deep structures intact Skin layer closed with: nylon Size (cm): 3-0 Number of sutures: 7 Technique: simple, interrupted Medical Decision Making 48yo previously healthy male presenting with laceration to palm of right hand; was pushing recycling down and was cut on something unseen. Last tetanus 2 years ago, no need for booster. Tachycardiac on arrival after ambulating into triage, vital signs otherwise reassuring. 2cm linear laceration on palm of right hand proximal to 2nd digit into SQ tissue with no muscular or tendon involvement, neurovascular intact. XR independently reviewed, no foreign body on my view, agree with radiology read below. Wound irrigated extensively and explored, shallow, no foreign body, no muscle or tendon involvement. Repaired with sutures. Discharged home; discharge instructions and return precautions were reviewed with patient who verbalized understanding. All questions were answered and he is in full agreement with the plan. Imaging Data Radiologic Study: Imaging: X-Ray Radiologist's impression: IMPRESSION: No acute fracture, dislocation, foreign body or soft tissue gas. Quality:SDOH Health Related Social Needs: No Data to Display PFSH All Active Problems (Updated 01/04/24 @ 19:26 by Mady Reynolds MD) Laceration of palm (Acute) Social History Smoking/Tobacco Use Status: Current every day Tobacco Type: cigarettes Years smoked: 30 Smoking risk assessment performed?: Yes Alcohol Intake: never Drug use: Rarely Substance use type: marijuana Do you feel safe at home: Yes Do you feel safe in your relationship?: Yes
[2024-01-04] MEDS: Lidocaine 2% Pres-Free W/EPI 1/200,000 20 ML VIAL (19:31)
== END 2024-01-04 19:36 | disposition home or self-care (01) ==
PROVIDERS: Emergency Provider Student in an Organized Health Care Education/Training Program
DX: S61.411A Laceration without foreign body of right hand, initial encounter (principal); W26.8XXA Contact with other sharp object(s), not elsewhere classified, initial encounter; Y93.89 Activity, other specified; Y92.099 Unspecified place in other non-institutional residence as the place of occurrence of the external cause
CPT/HCPCS: 12001; 99283; 73120; J2004

== ENCOUNTER 2024-08-28 18:28 | Emergency (ER) | payer MEDICAID, SELFPAY ==
[2024-08-28 18:31] VITALS: BP 132/90; PULSE 108; RESP 18; TEMP 36.6; O2SAT 96
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
[2024-08-28 19:20] VITALS: BP 123/68; PULSE 85; RESP 18; O2SAT 99
[2024-08-28] MEDS: Tetracaine 0.5% 4 ML BTL (19:20)
[2024-08-28] MEDS: Erythromycin Ophth Oint 3.5 GM TUBE OD (19:20)
[2024-08-28] MEDS: Fluorescein STRIPS 100/BOX 1 MG OP (19:20)
[2024-08-28 19:22] VITALS: BP 123/68; PULSE 85; RESP 18; TEMP 36.6; O2SAT 99
== END 2024-08-28 19:59 | disposition home or self-care (01) ==
LOC: ER 19:32
PROVIDERS: Emergency Provider Emergency Medicine; PCP Nurse Practitioner Family
DX: S05.02XA Injury of conjunctiva and corneal abrasion without foreign body, left eye, initial encounter (principal); X58.XXXA Exposure to other specified factors, initial encounter
CPT/HCPCS: 99283 ×2